=== PATIENT | male | born 1940 | race African-American/Black ===

== ENCOUNTER 2017-05-27 14:13 | Emergency (ER) | payer OTHER, SELFPAY ==
[2017-05-27 15:13] LABS: #Lymphocytes 0.7 thou/uL (1.20-3.40); #Monocytes 0.4 thou/uL (0.11-0.59); #Neutrophils 3.2 thou/uL (1.40-6.50); %Basophils 0.3 % (0.0-1.0); %Eosinophils 1.1 % (0.0-10.0); %Lymphocytes 15.5 % (21.0-51.0); %Neutrophils 73.1 % (42.0-75.0); Hemoglobin 9.2 g/dL (14.0-18.0); Mean Corpuscular HGB CONC 31.3 g/dL (32.0-36.0); Mean Corpuscular Hemoglobin 26.2 pg (27.0-31.0); Mean Corpuscular Volume 83.7 fl (80.0-94.0); Mean Platelet Volume 8.6 fL (7.4-10.4); Platelet Count 174 thou/uL (130-400); RBC Distribution Width 15.3 % (11.5-14.5); Red Blood Cell (RBC) Count 3.52 mill/uL (4.70-6.10); White Blood Cell (WBC) Count 4.4 thou/uL (4.8-10.8)
[2017-05-27 15:35] LABS: ALT (SGPT) Less than 7 U/L (8-55); AST (SGOT) 14 U/L (5-34); Albumin 3.8 g/dL (3.4-4.8); Alkaline Phosphatase 68 U/L (40-150); Anion Gap 15 mmol/L (10-20); BUN (Urea Nitrogen) 18 mg/dL (8.4-25.7); Bilirubin, Total 0.6 mg/dL (0.2-1.2); Calc. Creatinine Clearance 0 mL/min (70-130); Calcium 9.3 mg/dL (7.8-10.44); Carbon Dioxide 22 mmol/L (23-31); Chloride 110 mmol/L (98-107); Estimated GFR-MDRD 61; Globulin 4.4 g/dL (2.4-3.5); Glucose 136 mg/dL (83-110); Potassium 4.6 mmol/L (3.5-5.1); Protein, Total 8.2 g/dL (5.8-8.1); Sodium 142 mmol/L (136-145)
[2017-05-27 15:39] LABS: CKMB 1.6 ng/mL (0-6.6); Troponin I 0.045 ng/mL (< 0.028)
[2017-05-27] MEDS ORDERED: ISOVUE-370 76%-LOCM 1 ML ONE (15:42)
[2017-05-27 15:57] LABS: Lactic Acid 1.1 mmol/L (0.5-2.2)
[2017-05-27 15:57] LABS: Bilirubin Negative (Negative); Blood, Urine Negative (Negative); Clarity CLEAR (Clear); Glucose, Urine (Dipstick) Negative (Negative); Leukocyte Negative (Negative); Nitrite Positive (Negative); Protein, Urine (Dipstick) 100 mg/dL (Neg-Trace); Specific Gravity, Urine 1.015 (1.002-1.036)
[2017-05-27 15:59] LABS: Bacteria/HPF 4+ HPF (None Seen); Hyaline Casts/LPF 0-3 HYALINE CAST LPF (0-3 Hyaline); RBC/HPF None Seen HPF (0-3); Squamous Epithelial 0-3 HPF (0-3)
[2017-05-27 16:04] LABS: INR-International Normal Ratio 1.4; PTT 32.5 SEC (22.9-36.1); Prothrombin Time 17.5 SEC (12.0-14.7)
[2017-05-27 16:09] LABS: CK (CPK) 153 U/L (30-200); Lipase 5 U/L (8-78)
--- NOTE | 2017-05-27 19:21 | CT ---
CT ANGIO OF CHEST PERFORMED WITH INTRAVENOUS CONTRAST ENHANCEMENT WITH 3D RECONSTRUCTIONS: 05/27/17 HISTORY: Hypoxemia. 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 The lungs are clear of any infiltrative process. There is subsegmental atelectatic changes in the bas is. No pulmonary nodules are identified. There is no significant mediastinal or hilar adenopathy. 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 There is good pulmonary artery opacification. The more central vessels, more peripheral emboli are di fficult to exclude pulmonary embolus. The visualized liver parenchyma shows no focal findings. IMPRESSION: 1. No CT evidence for pulmonary embolus, peripheral emboli are not excluded on the basis of this exam. 2. Tracheomalacia changes. POS: [facility]
--- NOTE | 2017-05-27 19:26 | CT ---
CT OF ABDOMEN AND PELVIS PERFORMED WITH INTRAVENOUS CONTRAST ENHANCEMENT: 05/27/17 HISTORY: Liver cancer with metastatic disease to brain. Altered mental status. Abdominal distention. The lung bases show subsegmental atelectatic change. I do not seen any signs of any liver mass. There is some more linear decreased attenuation within the right lobe of the liver, possibly this is an ar ea of previous surgery. The spleen is within normal limits of size. The pancreas and gallbladder emiliana ons appear unremarkable. Right and left adrenal glands are normal in appearance. Right and left kidneys are normal in size. Sm all hypodensity involving the right kidney statistically most likely a small cyst. Some minimal perin ephric fat stranding bilaterally which is nonspecific. There is no significant periaortic or mesenter ic lymphadenopathy. CT OF PELVIS PERFORMED WITH CONTRAST ENHANCEMENT: Moderate amount of stool is seen in the descending and sigmoid colon region. There is some minimal fa t stranding in the left pericolic gutter but I do not see any evidence for any diverticulitis or any other definite inflammatory process. I do not see any obvious bowel wall thickening. No free fluid or significant adenopathy noted. Review of osseous structures shows some mild arthritic changes of the spine. IMPRESSION: No acute abnormalities of the abdomen or pelvis. Other findings as noted above. POS: [facility]
--- NOTE | 2017-05-27 19:34 | CT ---
CT OF BRAIN PERFORMED WITH AND WITHOUT CONTRAST ENHANCEMENT: 05/27/17 HISTORY: Liver cancer with history of metastatic disease to the brain. Patient has had syncopal episode and al tered mental status. There is generalized ventricular and sulcal prominence which is fairly age appropriate. There are no signs of intracerebral hemorrhage or extra-axial fluid collections. On the postcontrast images, I do not see any areas of abnormal contrast enhancement. The mastoid air cells and visualized sinuses are clear. IMPRESSION: No acute intracranial abnormalities. POS: [facility]
[2017-05-27 19:46] LABS: Calcium, Ionized 1.2 mmol/L (1.12-1.30); Hematocrit-ABG 28.5 % (42.0-52.0); Hemoglobin (Hb) 8.9 g/dL (14.0-18.0); pH, Arterial 7.35 (7.35-7.45)
[2017-05-27 19:49] LABS: Analyzer IN Cardio ER; Puncture Site L RADIAL
[2017-05-27] MEDS ORDERED: Nitrofurantoin Monohyd/M-Cryst 100 MG CAP PO SCH (21:15)
[2017-05-27] MEDS ORDERED: methylPREDNISolone Sod Succ/PF 125 MG/2 ML VIAL ONE (22:48)
[2017-05-28] MEDS ORDERED: cloNIDine 0.1 MG TAB ONE (00:53)
== END 2017-05-27 21:35 ==
LOC: ERS 14:13
DX: N39.0 Urinary tract infection, site not specified (principal); R41.82 Altered mental status, unspecified; E11.9 Type 2 diabetes mellitus without complications; I10 Essential (primary) hypertension; E03.9 Hypothyroidism, unspecified; E78.5 Hyperlipidemia, unspecified; Z79.4 Long term (current) use of insulin; Z79.899 Other long term (current) drug therapy
CPT/HCPCS: 36415; 36416; 70470; 71275; 74177; 80053; 81001; 82140; 82553; 82805; 83605; 83690; 83880; 84443; 84484; 85025; 85610; 85730; 87804; 96374; 96375; J0696; J2930; J7620

== ENCOUNTER 2017-06-26 08:00 | Inpatient (IN) | payer OTHER ==
[2017-06-26] MEDS ORDERED: Propofol 1,000 MG/100 ML VIAL IV ONE (08:27)
[2017-06-26 08:39] LABS: CO2 Tension 70.8 mmHg (35.0-45.0); pH, Arterial 7.17 (7.35-7.45)
[2017-06-26 08:40] LABS: Actual Bicarbonate (HCO3a) 25.4 mEq/L (22-26); Base Excess (BEa) -3.7 mEq/L (0 (+/-) 2.5); Hemoglobin (Hb) 9.1 g/dL (14.0-18.0); O2 Tension (PaO2) 44.2 mmHg (80.0-100.0)
[2017-06-26 08:41] LABS: Analyzer IN Cardio ER; Calcium, Ionized 1.1 mmol/L (1.12-1.30); Puncture Site RRA
[2017-06-26] MEDS ORDERED: Vancomycin HCl 1.5 GM in Sodium Chloride 0.9% 250 ML 300 ML IVPB SCH (09:15)
[2017-06-26 09:16] LABS: CKMB 18.2 ng/mL (0-6.6)
--- NOTE | 2017-06-26 09:44 | RAD ---
CHEST 1 VIEW: Date: 06/26/17 HISTORY: Tube placement. COMPARISON: None. FINDINGS: Patient is intubated with endotracheal tube tip craniad to the onesimo 3.6 cm. Enteric tube tip is fel t to be at the gastric fundus. Air space opacities are present throughout the chest. Defibrillator pa d projects over the right hemithorax. Central venous catheter tip at the inferior SVC. IMPRESSION: 1. Lines and tubes as above. 2. Extensive air space opacities throughout the lungs suggestive of edema and ARDS or hemorrhage. POS: [facility]
[2017-06-26 09:59] LABS: #Eosinphils 0.1 thou/uL (0.0-0.7); #Lymphocytes 0.9 thou/uL (1.20-3.40); #Monocytes 0.3 thou/uL (0.11-0.59); #Neutrophils 6.3 thou/uL (1.40-6.50); %Basophils 0.1 % (0.0-1.0); %Eosinophils 1.7 % (0.0-10.0); %Lymphocytes 11.4 % (21.0-51.0); %Monocytes 3.8 % (0.0-10.0); Hemoglobin 9.1 g/dL (14.0-18.0); Mean Corpuscular HGB CONC 30.8 g/dL (32.0-36.0); Mean Corpuscular Hemoglobin 26.1 pg (27.0-31.0); Mean Corpuscular Volume 84.8 fl (80.0-94.0); Mean Platelet Volume 8.4 fL (7.4-10.4); Platelet Count 198 thou/uL (130-400); RBC Distribution Width 15.1 % (11.5-14.5); Red Blood Cell (RBC) Count 3.47 mill/uL (4.70-6.10); White Blood Cell (WBC) Count 7.6 thou/uL (4.8-10.8)
[2017-06-26 10:08] LABS: INR-International Normal Ratio 1.7; Prothrombin Time 20.9 SEC (12.0-14.7)
[2017-06-26] MEDS ORDERED: Lorazepam 2 MG/ML VIAL ONE (10:08)
[2017-06-26 10:14] LABS: ALT (SGPT) 56 U/L (8-55); AST (SGOT) 96 U/L (5-34); Albumin 2.9 g/dL (3.4-4.8); Alkaline Phosphatase 85 U/L (40-150); Anion Gap 15 mmol/L (10-20); BUN (Urea Nitrogen) 17 mg/dL (8.4-25.7); Bilirubin, Total 0.7 mg/dL (0.2-1.2); Calc. Creatinine Clearance 77 mL/min (70-130); Calcium 7.6 mg/dL (7.8-10.44); Carbon Dioxide 24 mmol/L (23-31); Chloride 113 mmol/L (98-107); Estimated GFR-MDRD 71; Globulin 3.4 g/dL (2.4-3.5); Glucose 125 mg/dL (83-110); Magnesium 1.7 mg/dL (1.6-2.6); Potassium 3.5 mmol/L (3.5-5.1); Protein, Total 6.3 g/dL (5.8-8.1); Sodium 148 mmol/L (136-145)
[2017-06-26] MEDS ORDERED: Ondansetron HCl/PF 4 MG/2 ML Vial IVP PRN (11:02)
[2017-06-26] MEDS ORDERED: Acetaminophen 650 MG Suppository PR PRN (11:02)
--- NOTE | 2017-06-26 11:02 | CT ---
CT BRAIN: Date: 06/26/17 HISTORY: Status post cardiac arrest. FINDINGS: Noncontrast enhanced CT images of the brain obtained. The patient is intubated. The brain demonstrates some loss of the omer-white differentiation diffusely. This may represent diff use cerebral anoxia. No definite evidence of midline shift or significant focal areas of vascular dis tribution areas of stroke seen. No evidence of intracranial hemorrhage is seen. Correlate with follow -up CT images of brain or consider MRI. IMPRESSION: Possible loss of omer-white differentiation diffusely. Considering the patient's history, follow-up C T or other brain imaging may be warranted. POS: [facility]
[2017-06-26] MEDS ORDERED: Ventilator Sedation Protocol 1 EACH FS ONE (11:07)
[2017-06-26] MEDS ORDERED: CCU Electrolyte Replacement 1 EACH FS ONE (11:07)
[2017-06-26] MEDS ORDERED: Potassium Chloride 20 MEQ TAB PO PRN (11:16)
[2017-06-26] MEDS ORDERED: CCU ELECTROLYTE REPLACEMENT PROTOCOL FS PRN (11:16)
[2017-06-26] MEDS ORDERED: Potassium Chloride 40 MEQ in Sodium Chloride 0.9% 250 ML 250 ML IVPB PRN (11:16)
[2017-06-26] MEDS ORDERED: Potassium Phosphate 15 MMOL in Sodium Chloride 0.9% 250 ML 250 ML IV PRN (11:16)
[2017-06-26] MEDS ORDERED: Potassium Phosphate 9 MMOL in Sodium Chloride 0.9% 100 ML IVPB PRN (11:16)
[2017-06-26] MEDS ORDERED: Magnesium 2 GM/NS 0.9% 100 ML 2 GM in Premix Bag 1 BAG IVPB PRN (11:16)
[2017-06-26] MEDS ORDERED: Magnesium Oxide 400 MG TAB PO PRN ×2 (11:16)
[2017-06-26] MEDS ORDERED: Potassium Phosphate 12 MMOL in Sodium Chloride 0.9% 250 ML 250 ML IV PRN (11:16)
[2017-06-26] MEDS ORDERED: Lorazepam 2 MG/ML VIAL SLOW IVP PRN (11:17)
[2017-06-26] MEDS ORDERED: Fentanyl 20 MCG/ML 250 ML IVPB SCH (11:17)
[2017-06-26] MEDS ORDERED: Propofol 1,000 MG/100 ML VIAL IV PRN (11:17)
[2017-06-26] MEDS ORDERED: Morphine 2 MG/ML SYRINGE SLOW IVP PRN (11:17)
[2017-06-26] MEDS ORDERED: DISCONTINUE PREVIOUS NARCOTIC PAIN MEDICATIONS AND BENZODIAZEPINES FS SCH (11:17)
--- NOTE | 2017-06-26 11:41 | CT ---
CONTRAST ENHANCED CT IMAGES OF CHEST AND ABDOMEN AND PELVIS: Date: 06/26/17 HISTORY: Cardiopulmonary arrest. TECHNIQUE: Contrast enhanced CT images of chest, abdomen and pelvis obtained. Coronal reconstructed images perfo rmed. FINDINGS: The patient has a nasogastric tube in place. The patient is intubated. There is a right subclavian ce ntral line in place. Sternotomy wires are seen. There are diffuse air space opacities throughout the lung parenchyma along the posterior aspect of th e right and left upper lobes and lower lobes. This is compatible with bilateral pneumonia. No definite evidence of lymphadenopathy seen. No significant evidence of pleural effusions seen. Ther e is no evidence of pericardial effusion. The liver and spleen are unremarkable. The pancreas and gallbladder are unremarkable. Marked atherosc lerotic calcifications seen in the abdominal aorta. No evidence of free intraperitoneal air is seen. A large amount of stool is seen in the colon. There is an indwelling Sidhu catheter. No significant evidence of ascites is seen. No evidence of free intraperitoneal air is seen. IMPRESSION: Extensive lung parenchymal opacities compatible with pneumonia or ARDS. POS: [facility]
[2017-06-26 12:29] LABS: Troponin I 1.156 ng/mL (< 0.028)
[2017-06-26] MEDS: Potassium Chloride 40 MEQ in Premix Bag 1 BAG IVPB PRN (13:31)
[2017-06-26 13:51] LABS: CO2 Tension 47.7 mmHg (35.0-45.0); pH, Arterial 7.31 (7.35-7.45)
[2017-06-26 13:52] LABS: Actual Bicarbonate (HCO3a) 23.4 mEq/L (22-26); Base Excess (BEa) -2.9 mEq/L (0 (+/-) 2.5); Calcium, Ionized 1.1 mmol/L (1.12-1.30); Hemoglobin (Hb) 9.5 g/dL (14.0-18.0); O2 Tension (PaO2) 43.5 mmHg (80.0-100.0); Puncture Site LRA
[2017-06-26 13:53] LABS: ALV-art Gradient 609.875 (0-20); Peep/CPAP 7.5 cmH2O
[2017-06-26 14:25] LABS: Lactic Acid 1.6 mmol/L (0.5-2.2)
[2017-06-26] MEDS ORDERED: HumaLOG 300 UNITS/3 ML VIAL SC PRN (14:36)
[2017-06-26] MEDS ORDERED: Dextrose 5% in Water 1,000 ML IV PRN (14:36)
[2017-06-26] MEDS ORDERED: Dextrose 50% Abboject 50 ML SYRINGE SLOW IVP PRN (14:36)
[2017-06-26 14:44] LABS: Troponin I 1.496 ng/mL (< 0.028)
--- NOTE | 2017-06-26 16:03 | CON ---
DATE OF CONSULTATION: 06/26/2017 REASON FOR CONSULTATION: Acute respiratory failure after prolonged cardiac arrest. This encompassed 45 minutes critical care time. HISTORY OF PRESENT ILLNESS: History is obtained by reviewing records and speaking with the care prov iders involved in the case. The patient has never been to this facility in the past. He apparently went to the bathroom this morning at [facility] and subsequently was found down. He received over an jeanette r of CPR between the field and the [facility]. He eventually had return of spontan eous circulation. He has had no spontaneous neurologic activity since the code. PAST MEDICAL HISTORY: Hypertension and diabetes mellitus. PAST SURGICAL HISTORY: Not known. ALLERGIES: Not known at this time. SOCIAL HISTORY: Not known. FAMILY MEDICAL HISTORY: Not known. MEDICATIONS PRIOR TO ADMISSION: Not known at this time. REVIEW OF SYSTEMS: Cannot be obtained as the patient is on mechanical ventilation. PHYSICAL EXAMINATION: NEUROLOGIC: The patient has no spontaneous respirations. He has no withdrawal to pain, no gag refle x. His right pupil is 5 mm and does not constrict to light. Left pupil has had surgery, it is about 3 mm. I cannot get it constrict. He had no spontaneous respirations when placed on spontaneous rahel athing mode on the ventilator. HEENT: Otherwise, unremarkable. NECK: No JVD. LUNGS: Coarse rhonchi bilaterally. CARDIOVASCULAR: S1, S2, now regular. ABDOMEN: Obese, soft. EXTREMITIES: No overt edema. LABORATORY DATA: Sodium 140, potassium 3.5, chloride 113, CO2 of 24, BUN 17, creatinine 1.2, glucose 125, calcium 7.6. Lactate 5.4, troponin 1.5, AST 96, ALT 56, TSH 6.8. INR 1.7, pH 7.17, pCO2 of 70 , pO2 of 44. X-ray shows diffuse bilateral infiltrates. ASSESSMENT AND PLAN: This is a 77-year-old male who is status post at least an hour of asystolic act ivity with recurrent spontaneous circulation. He has acute respiratory failure and is on mechanical ventilation after the code. At this point, he has no obvious neurologic activity and he is probably brain . CT of his head, which I have reviewed, shows loss of white-omer matter differentiation. A CT of the chest, abdomen, and pelvis, which I have reviewed shows no acute findings other than babak ateral infiltrative changes. This patient's prognosis for recovery is essentially 0. If he is not brain , he is very close. I do not think any relatives have been identified yet as he is from the [facility] system. Unfortunately , I do not think there is much we can do to help this man recover.
--- NOTE | 2017-06-26 16:20 | HP-2 ---
DATE OF ADMISSION: 06/26/2017 RESIDENT PHYSICIAN: Tucker Pena M.D. ATTENDING PHYSICIAN: Tessa Russo M.D. PRIMARY CARE PHYSICIAN: David arcos. CHIEF COMPLAINT: Found down. HISTORY OF PRESENT ILLNESS: Mr. Rangel is a 77-year-old black male with past medical history of insulin-dependent type 2 diabetes mellitus, coronary artery disease, and hypertension, who presents from detention after being found down in the bathroom following a bowel movement. The patient was down for longer than 10 minutes per reports. Initial rhythm was asystole, and the patient received 6 total rounds of epinephrine and 100 mEq of bicarbonate at the facility before eventually obtaining return of spontaneous circulation. Pt was apparently coded multiple times for over an hour before ROSC obtained. He was then transferred to [facility] for further stabilization. At [facility], the patient was found to be bradycardiac and was given 1 mg atropine and temporarily paced. He also required a Levophed drip and at one point, had systolic blood pressures in the 90s on a maximum rate of Levophed. He was then transferred again to [facility] for higher level of care. In the ER, the patient was continued on a max rate of Levophed, received 1.5 mg of vancomycin, 750 mg of Levaquin, 4 liters of normal saline and was started on an additional low rate of propofol due to possibly overbreathing the vent. PAST MEDICAL HISTORY: (obtained from medical records printout from [facility] facility) 1. Insulin-dependent type 2 diabetes mellitus. 2. Gastroesophageal reflux disease. 3. Coronary artery disease, status post coronary artery bypass graft. 4. Anemia. 5. Prostate cancer. 6. Hyperlipidemia. 7. Hypothyroidism. 8. Hypertension. 9. Possible glaucoma. 10. Possible underlying chronic obstructive pulmonary disease. PAST SURGICAL HISTORY: Unable to obtain. ALLERGIES: No known drug allergies. MEDICATIONS: (obtained from medical records printout from [facility] facility) 1. Bicalutamide 50 mg daily. 2. Docusate 100 mg b.i.d. 3. Ferrous sulfate 325 mg b.i.d. 4. Isosorbide mononitrate 30 mg ER daily. 5. Latanoprost 0.05% eyedrops q.p.m. 6. Levothyroxine 100 mcg daily. 7. Novolin N 9 units every morning and 7 units every afternoon. 8. Novolin R sliding scale. 9. Omeprazole 20 mg daily. 10. Pravastatin 40 mg q.p.m. 11. Terazosin 2 mg daily. 12. Polyvinyl fara 1.4% eyedrops two drops b.i.d. 13. Timolol 0.5% b.i.d. 14. Proventil HFA 2 puffs b.i.d. p.r.n. 15. Simethicone 80 mg t.i.d. p.r.n. FAMILY HISTORY: Unable to obtain. SOCIAL HISTORY: Unable to obtain. REVIEW OF SYSTEMS: Unable to obtain. PHYSICAL EXAMINATION: VITAL SIGNS: Blood pressure 194/90, pulse 91, respiratory rate 20 on the vent, temperature was 91.7, pulse ox 92% on 60% FiO2. His other ventilatory settings were as follows: SIMV volume control with tidal volume of 500, pressure support of 10, PEEP of 5 and a rate of 20. GENERAL: The patient was not alert or oriented. He was obese. EYES: Eyes 5 mm pupils bilaterally, fixed and dilated. Conjunctivae within normal limits. ENT: ET tube in place. Nasal and oropharynx within normal limits. Poor dentition noted. NECK: Supple, no lymphadenopathy, no thyromegaly. CARDIOVASCULAR: Regular rhythm. No murmurs, no gallops. Radial and pedal pulses 2+ bilaterally. RESPIRATORY: On mechanical ventilation; diffuse severe rhonchi bilaterally. ABDOMEN: Firm and distended with hypoactive bowel sounds. There is no fluid wave noted. He had a rectal tone present. EXTREMITIES: No clubbing, no cyanosis, no edema. MUSCULOSKELETAL: Structure and tone within normal limits. Unable to perform strength testing. NEUROLOGIC: He had a GCS of 3. Hypoactive peripheral reflexes. No gag reflex noted. He did not withdraw from pain. SKIN: CABG scar on chest; large scar on R leg. LABORATORY DATA: CBC: White blood count of 7.6, hemoglobin 9.1, hematocrit 29.5, platelets 198, neutrophils were 82%. Chemistry shows sodium of 148, potassium 3.5, chloride 113, bicarbonate 24, BUN 17, creatinine 1.20 with an estimated GFR 71, glucose 125, calcium 7.6. His total protein was 6.3, albumin 2.9, total bilirubin 0.7, AST 96, ALT 56, alkaline phosphatase 85, BNP was 465.7. Initial lactic acid was 5.4, which down trended to 1.6. His initial troponin was 0.390, which has increased to 1.156. CK-MB was 18.2 and TSH was 6.8528. Urine studies were not able to be performed due to extremely low volumes of urine output. Initial EKG showed complete right bundle-branch block and posterior fascicular block with ST depression in V4 through V6 and diffuse T -wave inversion in anterior leads. Chest x-ray showed extensive airspace opacities throughout the lungs suggestive of edema and/or ARDS. IMAGING: CT of the chest, abdomen, and pelvis showed no significant evidence of ascites or free intraperitoneal air, but did show extensive lung parenchymal opacities compatible with pneumonia or ARDS. His brain CT showed possible loss of omer white matter differentiation diffusely. ASSESSMENT AND PLAN: A 77-year-old black male with: 1. Cardiopulmonary arrest with asystole, status post hinduism of spontaneous circulation. Unknown etiology at this time. Admitting to CCU, Pulmonology/Critical Care consulted. The patient has been hypothermic for approximately 6 hours, we will rewarm it this time. Cultures sent. Covered with empiric antibiotics. Pt appears to have minimal if any neurological function intact with early evidence of brain on his CT. 2. Acute hypoxic respiratory failure. Pulmonary to advise. Severe bilateral pulmonary edema vs. infiltrates present. Pt given trial dose of Lasix given in ER but remains severely hypoxic in the CCU on maximum FiO2. Continue ventilatory support for now. 3. Elevated troponins, likely secondary to myocardial damage during CPR. No evidence for massive MS as the cause of initial arrest. 4. Lactic acidosis, down trending after fluids. 5. Insulin-dependent type 2 diabetes mellitus. We will monitor accuchecks; sliding scale on board. 6. CKDIII. Pt currently severely oliguric. Likely with irreversible hypoxic renal damage. Will continue to monitor labs. 5. Coronary artery disease. 6. Anemia. 7. History of prostate cancer. 8. Hyperlipidemia. 9. Hypothyroidism. 10. Hypertension. 11. Gastroesophageal reflux disease. At this point, the patient appears to have no spontaneous neurological activity remaining. This patient has no known next of kin and a two attending DNR has been signed. Prognosis is extremely poor. History and physical exam as well as management discussed with Tessa Russo M.D. JUDIT
[2017-06-26] MEDS ORDERED: FLU VACC TS2017-18 (>65YR) 0.5 ML SYRINGE IM ONE (17:45)
--- NOTE | 2017-06-27 00:39 | HP ---
DATE OF SERVICE: 06/26/2017 Chief complaint: Cardiac arrest. HISTORY OF PRESENT ILLNESS: The patient is a 77-year-old prisoner who was transferred from [facility] after the patient was found to be in cardiac arrest with asystole for at least 10 minutes if not more at the [facility]. CPR was started and at some point the patient achieved return of spontaneous circulation. The patient was intubated in the field and then at some point during EMS transportation, he was noted to be bradycardic and had transcutaneous pacer pads placed, but no pacing had to be started. In the ER, the patient does not appear to have any significant neurologic function or gag reflex. Pupils are fixed and dilated and he does not withdraw to pain. Minimal history is known about the patient as [facility] and we do not have records available to us at the current time. The patient will be admitted to the ICU. We have a CT of the brain and CT of the chest, abdomen, and pelvis pending. It appeared that the patient suffered an arrest while trying to have a bowel movement per report. [facility] staff trying to locate any possible family members to be able to discuss code status. The patient is on Levophed. Blood pressure during my visit was in the 180s systolic, but nursing noted that any time they tried to decrease his Levophed, all of his blood pressure decreased and all of his vital signs became unstable. PHYSICAL EXAMINATION: VITAL SIGNS: Blood pressure was 174/74, pulse 86, O2 saturation 93% on mechanical ventilation. GENERAL: The patient is intubated with ET tube and OG tube in place. HEENT: Pupils are fixed and dilated. NECK: Supple without lymphadenopathy, thyromegaly or bruits. CARDIOVASCULAR: Regular rate and rhythm without murmurs or rubs. LUNGS: Had coarse breath sounds with crackles and wheezes noted diffusely. ABDOMEN: Distended with bowel sounds present. EXTREMITIES: There is no clubbing, cyanosis, or edema. LABORATORY: 1. CBC: WBC 11.1, hemoglobin 9.5, hematocrit 33.0, platelet count 163. 2. PT 19.8, INR 1.6, PTT 45.6. 3. ABG showed initial pH of 7.17, pCO2 of 70.8, pO2 of 44.2. 4. CMP: Sodium 148, potassium 3.5, chloride 113, bicarbonate 24, BUN 17, creatinine 1.20, glucose 125, calcium 7.6, mag 1.7, total bilirubin 0.7, AST 96 , ALT 56, alkaline phosphatase 85, total protein 6.3, albumin 2.9. 5. TSH of 6.8528. 6. Lactic acid 5.4. 7. Troponin of 1.156 and 1.496. ASSESSMENT AND PLAN: 1. Cardiac arrest, status post return of spontaneous circulation: The patient is being admitted to the ICU and is currently intubated. Neuro exam is very poor and I suspect that the patient's neurologic function was compromised with prolonged asystole. The patient's temperature in the ER and was 91 degrees. 2. Acute hypoxic respiratory failure: Pulmonology has been consulted and patient is being moved to the ICU. Prognosis is very grave 3. The patient has been started on broad spectrum antibiotics. 4. The patient has multiple CT scans that have been ordered and those results are pending. They may help determine further treatment. 5. After much discussion, it does not appear that there is any family for this patient and we will proceed with a 2-physicians making the patient DNR with Dr. Dutton being one and myself being the second. Please see Dr. Tucker Pena dictation for this patient. I have discussed the case in detail and agree with her documentation and have repeated pertinent portions of the history and physical by myself. JUDIT
[2017-06-27 04:15] LABS: #Basophils 0.1 thou/uL (0.0-0.2); #Lymphocytes 0.3 thou/uL (1.20-3.40); #Monocytes 0.4 thou/uL (0.11-0.59); #Neutrophils 4.8 thou/uL (1.40-6.50); %Basophils 1.1 % (0.0-1.0); %Eosinophils 0.1 % (0.0-10.0); %Lymphocytes 5.8 % (21.0-51.0); %Monocytes 7.8 % (0.0-10.0); %Neutrophils 85.3 % (42.0-75.0); Hemoglobin 9.2 g/dL (14.0-18.0); Mean Corpuscular HGB CONC 31.6 g/dL (32.0-36.0); Mean Corpuscular Hemoglobin 25.9 pg (27.0-31.0); Mean Corpuscular Volume 81.8 fl (80.0-94.0); Mean Platelet Volume 8.8 fL (7.4-10.4); Platelet Count 166 thou/uL (130-400); RBC Distribution Width 15.3 % (11.5-14.5); Red Blood Cell (RBC) Count 3.57 mill/uL (4.70-6.10); White Blood Cell (WBC) Count 5.7 thou/uL (4.8-10.8)
[2017-06-27 04:50] LABS: ALT (SGPT) 44 U/L (8-55); AST (SGOT) 72 U/L (5-34); Albumin 2.7 g/dL (3.4-4.8); Alkaline Phosphatase 65 U/L (40-150); Anion Gap 15 mmol/L (10-20); BUN (Urea Nitrogen) 29 mg/dL (8.4-25.7); Bilirubin, Total 0.8 mg/dL (0.2-1.2); Calc. Creatinine Clearance 40 mL/min (70-130); Calcium 7.9 mg/dL (7.8-10.44); Carbon Dioxide 24 mmol/L (23-31); Chloride 111 mmol/L (98-107); Estimated GFR-MDRD 35; Globulin 3.3 g/dL (2.4-3.5); Glucose 143 mg/dL (83-110); Potassium 3.5 mmol/L (3.5-5.1); Sodium 146 mmol/L (136-145)
[2017-06-27] MEDS: Norepinephrine 8 MG/250 ML BAG IVPB PRN ×2 (05:01→20:52)
[2017-06-27] MEDS: Potassium Chloride 40 MEQ in Premix Bag 1 BAG IVPB PRN (05:09)
[2017-06-27 07:06] LABS: Actual Bicarbonate (HCO3a) 23.3 mEq/L (22-26); Base Excess (BEa) -1.5 mEq/L (0 (+/-) 2.5); CO2 Tension 39.2 mmHg (35.0-45.0); Hemoglobin (Hb) 7.1 g/dL (14.0-18.0); O2 Tension (PaO2) 77.2 mmHg (80.0-100.0); pH, Arterial 7.39 (7.35-7.45)
[2017-06-27 07:07] LABS: Calcium, Ionized 1.1 mmol/L (1.12-1.30); Peep/CPAP 7.5 cmH2O; Puncture Site LRA
--- NOTE | 2017-06-27 07:24 | PDOC.FM ---
- Subjective Subjective: Patient with low tidal volumes overnight requiring propofol sedation. PEEP increased to 7.5. Levophed at 8 - Objective MAR Reviewed: Yes Vital Signs & Weight: Vital Signs (12 hours) Temp Pulse Resp BP 06/27/17 06:37 87 162/57 H 06/27/17 06:00 20 06/27/17 04:00 99.1 F 06/27/17 02:13 90 06/27/17 02:00 20 06/27/17 01:00 98.1 F 06/27/17 00:00 20 06/26/17 22:43 87 06/26/17 22:00 20 06/26/17 20:00 20 Weight Admit Weight 99.6 g Weight 99.3 kg Most Recent Monitor Data Heart Rate from ECG 86 NIBP 158/55 NIBP BP-Mean 84 Respiration from ECG 26 SpO2 100 I&O: 06/26/17 06/27/17 06/28/17 06:59 06:59 06:59 Intake Total 986.4 Output Total 1220 Balance -233.6 Result Diagrams: 06/27/17 04:00 06/27/17 04:00 <Yandel Bhatia - Last Filed: 06/27/17 07:22> - Objective Vital Signs & Weight: Vital Signs (12 hours) Temp Pulse Resp BP Pulse Ox 06/27/17 12:00 101.7 F H 20 93 L 06/27/17 10:27 65 101/49 L 06/27/17 10:00 21 H 06/27/17 08:00 99.8 F H 79 20 97 06/27/17 06:37 87 162/57 H 06/27/17 06:00 20 06/27/17 04:00 99.1 F Weight Admit Weight 99.6 g Weight 99.3 kg Most Recent Monitor Data Heart Rate from ECG 63 NIBP 83/42 NIBP BP-Mean 59 Respiration from ECG 20 SpO2 95 I&O: 06/26/17 06/27/17 06/28/17 06:59 06:59 06:59 Intake Total 986.4 10 Output Total 1220 82 Balance -233.6 -72 Result Diagrams: 06/27/17 04:00 06/27/17 04:00 <Tessa Russo - Last Filed: 06/27/17 14:17> Phys Exam - Physical Examination Neck: no nodes, no JVD bilateral rhonchi Cardiovascular: RRR, no significant murmur distended with fluid wave negative corneal, gag, cough reflex; no withdrawal from pain <Yandel Bhatia - Last Filed: 06/27/17 07:22> Dx/Plan (1) Cardiopulmonary arrest Code(s): I46.9 - CARDIAC ARREST, CAUSE UNSPECIFIED Status: Acute Plan: Unknown how long patient was down. Found to be in asystole. Achieved ROSC, but no recovery of neurological function. GCS of 3 this morning (2) Acute respiratory failure with hypoxia Code(s): J96.01 - ACUTE RESPIRATORY FAILURE WITH HYPOXIA Status: Acute Plan: Sedated and on ventilator (3) Elevated troponin Code(s): R74.8 - ABNORMAL LEVELS OF OTHER SERUM ENZYMES Status: Acute Plan: 2/2 to cardiopulmonary arrest (4) IDDM (insulin dependent diabetes mellitus) Code(s): E11.9 - TYPE 2 DIABETES MELLITUS WITHOUT COMPLICATIONS; Z79.4 - TRAFFIC DIRECTOR (CURRENT) USE OF INSULIN Status: Acute (5) CKD (chronic kidney disease) stage 3, GFR 30-59 ml/min Code(s): N18.3 - CHRONIC KIDNEY DISEASE, STAGE 3 (MODERATE) Status: Acute (6) CAD (coronary artery disease) Code(s): I25.10 - ATHSCL HEART DISEASE OF [place] CORONARY ARTERY W/O ANG PCTRS Status: Acute (7) Anemia Code(s): D64.9 - ANEMIA, UNSPECIFIED Status: Acute (8) Hypothyroidism Code(s): E03.9 - HYPOTHYROIDISM, UNSPECIFIED Status: Acute (9) History of prostate cancer Code(s): Z85.46 - PERSONAL HISTORY OF MALIGNANT NEOPLASM OF PROSTATE Status: Acute - Plan Plan: Plan: -patient with no family therefore he has been made DNR after evaluation by 2 physicians -CT chest/abd/pelvis reveal no etiology for arrest -CT brain shows significant brain injury -Cultures are pending <Yandel Bhatia - Last Filed: 06/27/17 07:22> Attending Addendum - Attending Addendum I personally evaluated the patient and discussed the management with Dr. Bhatia. I agree with the History, Examination, Assessment and Plan documented above with any addition or exceptions noted below. 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 He is DNR. Patient with no next of kin. Will continue routine supportive care. Neuro exam unchanged. Will get case management to help coordinate with [facility] officials in the coming days. Prognosis is grave. <Tessa Russo - Last Filed: 06/27/17 14:17>
[2017-06-27] MEDS: Pantoprazole 40 MG VIAL IVP SCH (09:15)
[2017-06-27] MEDS: Enoxaparin Sodium 40 MG/0.4 ML SYRINGE SC SCH (09:15)
[2017-06-27] MEDS: Vancomycin HCl 1.5 GM in Sodium Chloride 0.9% 250 ML 300 ML IVPB SCH (10:00)
--- NOTE | 2017-06-27 12:44 | PRG ---
DATE OF SERVICE: 06/27/2017 35 minutes critical care time. SUBJECTIVE: Mr. Rangel remains intubated on mechanical ventilation. OBJECTIVE: VITAL SIGNS: Temperature 99.1 with a T-max of 99.1, pulse 86, blood pressure 158/55. A 24 hour inta ke 986, output 1220. NEUROLOGIC: The patient has a cough and does have spontaneous respirations. He does not withdraw to reflexes. Pupils do not react to light. HEENT: Otherwise, unremarkable. NECK: No JVD. LUNGS: Coarse breath sounds. CARDIOVASCULAR: S1, S2 regular. ABDOMEN: Soft, nontender. EXTREMITIES: No edema. LABORATORY DATA: White blood cell count 5.7, hemoglobin 9.2, hematocrit 29.2, platelet count 166, pH 7.39, pCO2 of 39, pO2 of 77 on SIMV rate of 20, tidal volume 500, PEEP 7.5, pressure support 10, FiO 2 100%. Sodium 146, potassium 3.5, chloride 111, CO2 of 24, BUN 29, creatinine 2.2, glucose 143. ASSESSMENT: 1. Status post prolonged cardiac arrest. 2. Severe anoxic brain injury, but the patient is not brain based on spontaneous respirations a nd cough. 3. History of multiple medical problems prior to admission including hypertension and diabetes solis osei. RECOMMENDATIONS: This is a tough situation. I believe that the patient's prognosis for neurologic r ecovery is essentially zero given the amount of time he has spent in cardiac arrest. A two-attending DNR was issued yesterday because the patient does not have family. Withdrawal of care becomes a peg y dicey issue and may have to be discussed with the [place] [employer] personnel. I do believe withdrawal of care would be appropriate, but we may need to wait to 72 hours to assure there is no further neurological recovery.
[2017-06-27] MEDS: Acetaminophen 650 MG/20.3 ML UDCUP PO PRN ×2 (12:58→19:16)
[2017-06-28] MEDS: Acetaminophen 650 MG/20.3 ML UDCUP PO PRN (02:21)
[2017-06-28 04:47] LABS: ALT (SGPT) 239 U/L (8-55); AST (SGOT) 541 U/L (5-34); Albumin 2.7 g/dL (3.4-4.8); Alkaline Phosphatase 60 U/L (40-150); Anion Gap 16 mmol/L (10-20); BUN (Urea Nitrogen) 49 mg/dL (8.4-25.7); Bilirubin, Total 0.9 mg/dL (0.2-1.2); Calc. Creatinine Clearance 20 mL/min (70-130); Calcium 8.2 mg/dL (7.8-10.44); Carbon Dioxide 23 mmol/L (23-31); Chloride 113 mmol/L (98-107); Estimated GFR-MDRD 16; Globulin 3.4 g/dL (2.4-3.5); Glucose 117 mg/dL (83-110); Potassium 4.6 mmol/L (3.5-5.1); Protein, Total 6.1 g/dL (5.8-8.1); Sodium 147 mmol/L (136-145)
[2017-06-28 05:04] LABS: Band 36 % (5-11); Hemoglobin 8.4 g/dL (14.0-18.0); Hypochromia SLIGHT = 6-15 cells (100X) (0-5/hpf); Lymphocytes 5 % (21-51); MDiff Complete? YES; Mean Corpuscular HGB CONC 31.9 g/dL (32.0-36.0); Mean Corpuscular Hemoglobin 25.9 pg (27.0-31.0); Mean Corpuscular Volume 81.1 fl (80.0-94.0); Mean Platelet Volume 9.3 fL (7.4-10.4); Metamyelocyte 15 % (0-0); Monocytes 2 % (0-10); Neutrophil 42 % (42-75); Ovalocytes SLIGHT = 2-5 cells (100X) (0-1/hpf); PLT Morphology Comment Appears Adequate; Platelet Count 142 thou/uL (130-400); RBC Distribution Width 15.3 % (11.5-14.5); Red Blood Cell (RBC) Count 3.25 mill/uL (4.70-6.10); White Blood Cell (WBC) Count 7.6 thou/uL (4.8-10.8)
[2017-06-28 05:40] LABS: Actual Bicarbonate (HCO3a) 21.5 mEq/L (22-26); Base Excess (BEa) -3.8 mEq/L (0 (+/-) 2.5); CO2 Tension 38.6 mmHg (35.0-45.0); Calcium, Ionized 1.1 mmol/L (1.12-1.30); Hemoglobin (Hb) 8.6 g/dL (14.0-18.0); O2 Tension (PaO2) 67.6 mmHg (80.0-100.0); Puncture Site RRAD; pH, Arterial 7.36 (7.35-7.45)
[2017-06-28 05:41] LABS: Peep/CPAP 7.5 cmH2O
[2017-06-28] MEDS ORDERED: Sodium Chloride 0.9% 1,000 ML IV SCH ×2 (07:30→16:15)
[2017-06-28] MEDS: Acetaminophen 1,000 MG in Premix Bag 1 BAG IVPB PRN ×2 (07:43→17:39)
--- NOTE | 2017-06-28 07:48 | PRG ---
DATE OF SERVICE: 06/28/2017 SUBJECTIVE: The patient remains intubated on mechanical ventilation. There have been no acute [place] es in his condition overnight. Neurologically, he has spontaneous respirations, other than that neur ologic activity is absent. OBJECTIVE: HEENT EXAM: Pupils do not react. Sclerae are anicteric. Oropharynx dry. NECK: No JVD. LUNGS: Coarse breath sounds. CARDIOVASCULAR: S1 and S2, regular. ABDOMEN: Soft, obese. EXTREMITIES: Trace edema throughout. LABORATORY DATA: Sodium 147, potassium 4.6, chloride 113, CO2 of 23, BUN 49, creatinine 4.4, glucose 117, AST 541, ALT 239, pH 7.36, pCO2 of 38, pO2 of 67 on SIMV rate 20, tidal volume 500, PEEP 7.5, p ressure support 10, FiO2 50%. White blood cell count 7.6, hematocrit 26.3, platelet count 142. Chest x-ray shows diffuse infiltrative changes bilaterally. ASSESSMENT: 1. Status post prolonged cardiac arrest. 2. Multiple organ failure including respiratory failure, renal failure, shock liver. 3. Severe anoxic brain injury. 4. Multiple medical problems prior to the admission including hypertension and diabetes mellitus. PLAN: Again, I will reiterate, this patient has zero chance of regaining his previous quality of lif e. He has a deep anoxic brain injury and is suffering from multiple organ failure. This time tomorr ow will be about 72 hours post the insult. I think at that time we should probably contact [facility] and see if it is okay to proceed with withdrawal of care.
--- NOTE | 2017-06-28 08:10 | RAD ---
SINGLE VIEW OF CHEST: Date: 06/28/17 COMPARISON: 06/26/17. HISTORY: Ventilated patient with respiratory failure. FINDINGS: Single view of the chest shows an enlarged but stable cardiomediastinal silhouette. The patient is st atus post sternotomy. Lines and tubes are unchanged in position. There are multifocal infiltrates in the lungs. The left upper lobe infiltrate appears to have improved. IMPRESSION: Improving multifocal infiltrates. POS: [facility]
[2017-06-28 08:38] LABS: Vancomycin, Trough 30.3 ug/mL
[2017-06-28] MEDS: Pantoprazole 40 MG VIAL IVP SCH (09:02)
[2017-06-28] MEDS: Enoxaparin Sodium 40 MG/0.4 ML SYRINGE SC SCH (09:03)
[2017-06-28] MEDS: Vancomycin HCl 1.5 GM in Sodium Chloride 0.9% 250 ML 300 ML IVPB SCH (09:03)
--- NOTE | 2017-06-28 09:12 | PDOC.FM ---
- Subjective Subjective: Patient with episode of bradycardia and hypotension overnight, resolved and now vital signs stable. No change in neurological status - Objective MAR Reviewed: Yes Vital Signs & Weight: Vital Signs (12 hours) Temp Pulse Resp 06/28/17 08:26 62 06/28/17 07:00 103.1 F H 06/28/17 06:00 100.3 F H 20 06/28/17 04:00 100.3 F H 20 06/28/17 02:17 75 06/28/17 02:00 20 06/28/17 01:00 101.7 F H 06/27/17 23:00 101.5 F H 06/27/17 22:21 83 06/27/17 22:00 101.9 F H 20 Weight Admit Weight 99.6 g Weight 98.2 kg Most Recent Monitor Data Heart Rate from ECG 67 NIBP 121/36 NIBP BP-Mean 74 Respiration from ECG 18 SpO2 99 I&O: 06/27/17 06/28/17 06/29/17 06:59 06:59 06:59 Intake Total 986.4 866 4.1 Output Total 1220 1037 5 Balance -233.6 -171 -0.9 Result Diagrams: 06/28/17 04:00 06/28/17 04:00 <Yandel Bhatia - Last Filed: 06/28/17 09:10> - Objective Vital Signs & Weight: Vital Signs (12 hours) Temp Pulse Resp Pulse Ox 06/28/17 10:59 60 06/28/17 08:26 62 06/28/17 08:00 103.1 F H 67 20 93 L 06/28/17 07:00 103.1 F H 06/28/17 06:00 100.3 F H 20 06/28/17 04:00 100.3 F H 20 06/28/17 02:17 75 06/28/17 02:00 20 06/28/17 01:00 101.7 F H Weight Admit Weight 99.6 g Weight 98.2 kg Most Recent Monitor Data Heart Rate from ECG 63 NIBP 117/41 NIBP BP-Mean 84 Respiration from ECG 19 SpO2 98 I&O: 06/27/17 06/28/17 06/29/17 06:59 06:59 06:59 Intake Total 986.4 866 154.1 Output Total 1220 1037 10 Balance -233.6 -171 144.1 Result Diagrams: 06/28/17 04:00 06/28/17 04:00 <Derek Cobos - Last Filed: 06/28/17 11:33> Phys Exam - Physical Examination bilateral rhonchi Cardiovascular: RRR, no significant murmur distended with fluid wave negative cough, corneal, gag reflex; no withdrawal from pain Psychiatric: normal affect <Yandel Bhatia - Last Filed: 06/28/17 09:10> Dx/Plan (1) Cardiopulmonary arrest Code(s): I46.9 - CARDIAC ARREST, CAUSE UNSPECIFIED Status: Acute Plan: Unknown how long patient was down. Found to be in asystole. Achieved ROSC, but no recovery of neurological function. 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 Status: Acute (5) CKD (chronic kidney disease) stage 3, GFR 30-59 ml/min Code(s): N18.3 - CHRONIC KIDNEY DISEASE, STAGE 3 (MODERATE) Status: Acute (6) CAD (coronary artery disease) Code(s): I25.10 - ATHSCL HEART DISEASE OF [place] CORONARY ARTERY W/O ANG PCTRS Status: Acute (7) Anemia Code(s): D64.9 - ANEMIA, UNSPECIFIED Status: Acute (8) Hypothyroidism Code(s): E03.9 - HYPOTHYROIDISM, UNSPECIFIED Status: Acute (9) History of prostate cancer Code(s): Z85.46 - PERSONAL HISTORY OF MALIGNANT NEOPLASM OF PROSTATE Status: Acute - Plan Plan: Plan: -possible extubation pending correctional decision <Yandel Bhatia - Last Filed: 06/28/17 09:10> Attending Addendum - Attending Addendum I personally evaluated the patient and discussed the management with Dr. Bhatia. I agree with the History, Examination, Assessment and Plan documented above with any addition or exceptions noted below. Appreciate CC Team care adn expertise. In absence of common surrogate medical decision makers, I appreciate second attending opinion. Ethics consult ordered to assist in compliance with State and [employer]ologist Health Directives. <Derek Cobos - Last Filed: 06/28/17 11:33>
[2017-06-28] MEDS ORDERED: VANCOMYCIN IVPB PRN (12:26)
[2017-06-28] MEDS ORDERED: LEVAQUIN IVPB PRN (12:26)
[2017-06-28 14:37] VITALS: BMI 32.9
[2017-06-28] MEDS ORDERED: Dextrose 5 % And 0.9 % NaCl 1,000 ML IV SCH (14:45)
[2017-06-28] MEDS ORDERED: Vancomycin HCl 1.5 GM in Sodium Chloride 0.9% 250 ML 300 ML IVPB SCH ×3 (15:00→21:00)
[2017-06-28] MEDS ORDERED: Dextrose 50% Abboject 50 ML SYRINGE IVP SCH (16:15)
[2017-06-28] MEDS ORDERED: Ibuprofen 100 MG/5 ML UDCUP PO PRN (19:08)
[2017-06-28] MEDS ORDERED: Dextrose 5 %-0.45 % NaCl 1,000 ML IV SCH (19:15)
[2017-06-28 20:47] LABS: Vancomycin, Random 27.1 ug/mL (See Comment)
[2017-06-29] MEDS ORDERED: Dextrose 5 %-0.45 % NaCl 1,000 ML IV SCH (04:20)
[2017-06-29 04:59] LABS: ALT (SGPT) 1289 U/L (8-55); AST (SGOT) 2550 U/L (5-34); Albumin 2.6 g/dL (3.4-4.8); Alkaline Phosphatase 64 U/L (40-150); Anion Gap 18 mmol/L (10-20); BUN (Urea Nitrogen) 67 mg/dL (8.4-25.7); Bilirubin, Total 1.2 mg/dL (0.2-1.2); Calc. Creatinine Clearance 14 mL/min (70-130); Calcium 8.3 mg/dL (7.8-10.44); Carbon Dioxide 20 mmol/L (23-31); Chloride 112 mmol/L (98-107); Estimated GFR-MDRD 11; Globulin 3.3 g/dL (2.4-3.5); Glucose 129 mg/dL (83-110); Potassium 4.8 mmol/L (3.5-5.1); Protein, Total 5.9 g/dL (5.8-8.1); Sodium 145 mmol/L (136-145)
[2017-06-29 05:18] LABS: Band 33 % (5-11); Hemoglobin 7.7 g/dL (14.0-18.0); Lymphocytes 14 % (21-51); MDiff Complete? YES; Mean Corpuscular HGB CONC 31.4 g/dL (32.0-36.0); Mean Corpuscular Hemoglobin 25.5 pg (27.0-31.0); Mean Corpuscular Volume 81.3 fl (80.0-94.0); Mean Platelet Volume 10.2 fL (7.4-10.4); Neutrophil 53 % (42-75); PLT Morphology Comment Appears Decreased; Platelet Count 106 thou/uL (130-400); RBC Distribution Width 15.5 % (11.5-14.5); White Blood Cell (WBC) Count 5.5 thou/uL (4.8-10.8)
[2017-06-29 07:09] LABS: Base Excess (BEa) -6.9 mEq/L (0 (+/-) 2.5); CO2 Tension 39.4 mmHg (35.0-45.0); O2 Tension (PaO2) 85.3 mmHg (80.0-100.0)
[2017-06-29 07:10] LABS: Calcium, Ionized 1.1 mmol/L (1.12-1.30); Hematocrit-ABG 24.3 % (42.0-52.0); Hemoglobin (Hb) 7.9 g/dL (14.0-18.0); Peep/CPAP 7.5 cmH2O; Puncture Site RRA
--- NOTE | 2017-06-29 07:45 | PRG ---
DATE OF SERVICE: 06/29/2017 Thirty-five minutes critical care time. The patient remains intubated on mechanical ventilation. Neurologically all he can is trigger some s pontaneous respirations, other than that he does not move. PHYSICAL EXAMINATION: HEENT: Unremarkable. NECK: No JVD. LUNGS: Clear. CARDIAC: S1 and S2 regular. ABDOMEN: Distended. EXTREMITIES: Edematous. LABORATORY DATA: Sodium 145, potassium 4.8, chloride 112, CO2 20, BUN 67, creatinine 6.3, glucose 12 9. AST 2550, ALT 1289. ABG pending. White blood cell count 5.5, hematocrit 24.4, platelet count 10 6. ABG; pH 7.30, pCO2 39, pO2 85. ASSESSMENT: 1. Anoxic encephalopathy with no improvement over 72 hours. 2. Multiple organ failure including renal failure, hepatic failure. 3. Acute respiratory failure requiring mechanical ventilation. PLAN: Again, the patient has zero chance of improvement. I believe that care should be withdrawn if this is okay to the TDC.
[2017-06-29 08:18] VITALS: TEMP 101.4
--- NOTE | 2017-06-29 08:39 | PDOC.FM ---
- Subjective Subjective: Patient is off sedation with no discernible neurological recovery. Febrile overnight with worsening hypernatremia. S/p 72 hours on mechanical ventilation - Objective MAR Reviewed: Yes Vital Signs & Weight: Vital Signs (12 hours) Temp Pulse Resp BP Pulse Ox 06/29/17 08:22 53 L 128/32 L 06/29/17 08:00 101.4 F H 54 L 20 100 06/29/17 06:00 20 06/29/17 04:00 99.2 F 20 06/29/17 03:00 99.8 F H 06/29/17 02:27 56 L 128/31 L 06/29/17 02:00 20 06/29/17 00:00 99.2 F 20 06/28/17 22:13 52 L 124/27 L 06/28/17 22:00 20 06/28/17 21:00 99.3 F Weight Admit Weight 97.976 kg Weight 99.6 kg Most Recent Monitor Data Heart Rate from ECG 54 NIBP 128/32 NIBP BP-Mean 56 Respiration from ECG 19 SpO2 96 I&O: 06/28/17 06/29/17 06/30/17 06:59 06:59 06:59 Intake Total 866 2307.1 Output Total 1037 50 0 Balance -171 2257.1 0 Result Diagrams: 06/29/17 04:25 06/29/17 04:25 <Yandel Bhatia - Last Filed: 06/29/17 08:37> - Objective Vital Signs & Weight: Vital Signs (12 hours) Temp Pulse Resp BP Pulse Ox 06/29/17 10:57 55 L 129/31 L 06/29/17 08:22 53 L 128/32 L 06/29/17 08:00 101.4 F H 54 L 20 100 06/29/17 06:00 20 06/29/17 04:00 99.2 F 20 06/29/17 03:00 99.8 F H 06/29/17 02:27 56 L 128/31 L 06/29/17 02:00 20 06/29/17 00:00 99.2 F 20 Weight Admit Weight 97.976 kg Weight 99.6 kg Most Recent Monitor Data Heart Rate from ECG 54 NIBP 129/31 NIBP BP-Mean 81 Respiration from ECG 20 SpO2 100 I&O: 06/28/17 06/29/17 06/30/17 06:59 06:59 06:59 Intake Total 866 2307.1 Output Total 1037 50 0 Balance -171 2257.1 0 Result Diagrams: 06/29/17 04:25 06/29/17 04:25 <Derek Cobos - Last Filed: 06/29/17 11:03> Phys Exam - Physical Examination Neck: no JVD coarse rales bilaterally Cardiovascular: RRR, no significant murmur Gastrointestinal: soft distended negative corneal reflex; no withdrawal from pain <Yandel Bhatia - Last Filed: 06/29/17 08:37> Dx/Plan (1) Cardiopulmonary arrest Code(s): I46.9 - CARDIAC ARREST, CAUSE UNSPECIFIED Status: Acute Plan: Unknown how long patient was down. Found to be in asystole. Achieved ROSC, but no recovery of neurological function. 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 Status: Acute (5) CKD (chronic kidney disease) stage 3, GFR 30-59 ml/min Code(s): N18.3 - CHRONIC KIDNEY DISEASE, STAGE 3 (MODERATE) Status: Acute (6) CAD (coronary artery disease) Code(s): I25.10 - ATHSCL HEART DISEASE OF [place] CORONARY ARTERY W/O ANG PCTRS Status: Acute (7) Anemia Code(s): D64.9 - ANEMIA, UNSPECIFIED Status: Acute (8) Hypothyroidism Code(s): E03.9 - HYPOTHYROIDISM, UNSPECIFIED Status: Acute (9) History of prostate cancer Code(s): Z85.46 - PERSONAL HISTORY OF MALIGNANT NEOPLASM OF PROSTATE Status: Acute - Plan Plan: Plan: -will speak with warden regarding decision making going forward -likely extubate today <Yandel Bhatia - Last Filed: 06/29/17 08:37> Attending Addendum - Attending Addendum I personally evaluated the patient and discussed the management with Dr. Bhatia. I agree with the History, Examination, Assessment and Plan documented above with any addition or exceptions noted below. Dr Bhatia reports that TCD has deferred to us for care decisions. Ethics consult input is gratefully received. Current management appears futile. Will coordinate care with Critical Care. <Derek Cobos - Last Filed: 06/29/17 11:03>
[2017-06-29] MEDS ORDERED: Enoxaparin Sodium 30 MG/0.3 ML SYRINGE SC SCH (09:00)
[2017-06-29] MEDS: Pantoprazole 40 MG VIAL IVP SCH (09:05)
[2017-06-29 11:00] VITALS: BP 129/31
--- NOTE | 2017-06-29 11:09 | PDOC.EVN ---
Event Note - Event Note Event Note: Spoke with via phone this morning. He reports that any further medical decision making regarding Mr. Rangel's care is to be done at the discretion of the physicians involved in his case. According to him, we have the authority to withdraw care if we deem it appropriate and further intervention would be futile.
[2017-06-29] MEDS ORDERED: Lorazepam 2 MG/ML VIAL SLOW IVP PRN (11:23)
[2017-06-29] MEDS ORDERED: Vancomycin HCl 750 MG in Sodium Chloride 0.9% 250 ML 250 ML IVPB SCH (22:00)
--- NOTE | 2017-06-30 13:49 | DS-2 ---
DATE OF ADMISSION: 06/26/2017 DATE OF : 06/29/2017 TIME OF : 11:39 a.m. ATTENDING: Derek Cobos M.D. RESIDENT: Yandel Bhatia M.D. CAUSE OF : 1. Anoxic brain injury. 2. Shock liver. 3. Renal failure. SECONDARY DIAGNOSES: 1. Diabetes mellitus type 2. 2. Coronary artery disease. 3. Hyperlipidemia. 4. Hypertension. HOSPITAL COURSE: This is a 77-year-old gentleman found down in fci, found to be in asystole. He was then resuscitated successfully. The patient was transferred to [facility] for high level of care. He was nonresponsive and comatose while in the ICU. He was up in the ventilator for the 72 hours in hopes that he would regain neurologic function. After 72 hours, it was apparent that he would regain no prior level of function. The patient does not have any next of kin. Theref ore, a 2-physician DNR was put in place and the patient was extubated on 06/29/2017. He subsequently shortly thereafter.
--- NOTE | 2017-07-03 12:21 | EKG ---
Test Reason : Blood Pressure : / mmHG Vent. Rate : 093 BPM Atrial Rate : 093 BPM P-R Int : 176 ms QRS Dur : 078 ms QT Int : 394 ms P-R-T Axes : 057 036 055 degrees QTc Int : 489 ms Normal sinus rhythm Nonspecific ST abnormality Prolonged QT Abnormal ECG Confirmed by ZEN IVERSON M.D. ([id number]), advertising editor VLADIMIR BILL ([id number] on 07/03/2017 12:21:01 PM Referred By: Confirmed By:ZEN IVERSON M.D.
== END 2017-06-29 11:39 | disposition expired | DRG 296 ==
LOC: ERS 08:00 → CCU 10:18
PROVIDERS: ADMIT Emergency Medicine; ATTEND Family Medicine
PROC: 0BH17EZ Insertion of Endotracheal Airway into Trachea, Via Natural or Artificial Opening (ICD-10-PCS; principal; 2017-06-26)
PROC: 5A1945Z Respiratory Ventilation, 24-96 Consecutive Hours (ICD-10-PCS; 2017-06-26)
DX: I46.9 Cardiac arrest, cause unspecified (principal); J96.01 Acute respiratory failure with hypoxia; K72.01 Acute and subacute hepatic failure with coma; G93.1 Anoxic brain damage, not elsewhere classified; E87.2 Acidosis; N18.3 Chronic kidney disease, stage 3 (moderate); E11.22 Type 2 diabetes mellitus with diabetic chronic kidney disease; Z66 Do not resuscitate; Z79.4 Long term (current) use of insulin; K21.9 Gastro-esophageal reflux disease without esophagitis; I25.10 Atherosclerotic heart disease of native coronary artery without angina pectoris; Z95.1 Presence of aortocoronary bypass graft; Z85.46 Personal history of malignant neoplasm of prostate; E03.9 Hypothyroidism, unspecified; I12.9 Hypertensive chronic kidney disease with stage 1 through stage 4 chronic kidney disease, or unspecified chronic kidney disease; D64.9 Anemia, unspecified; E78.5 Hyperlipidemia, unspecified; R74.8 Abnormal levels of other serum enzymes; R40.2432 Glasgow coma scale score 3-8, at arrival to emergency department
CPT/HCPCS: 31500; 36415; 36416; 70450; 71045; 71260; 74177; 80053; 80202; 82805; 83605; 83735; 83880; 84443; 85025; 87040; 87086; 93005; 94002; 94003; 96365; 96366; 96368; 96375; A4216; C1751; C9113; J0131; J1650; J1956; J2060; J2704; J3370; J3475; J3480; J7050